=== PATIENT | male | born 1955 | race Caucasian/White ===

== ENCOUNTER 2019-05-06 10:51 | Inpatient (IN) | payer OTHER ==
[~2019-05-06] VITALS: Ht 175.3 cm; Wt 74.0 kg
[2019-05-06] VITALS (22 sets, daily range): BP systolic 117–148; BP diastolic 61–97
--- NOTE | ~2019-05-06 | HC ---
[facility] [place] [address] CONSULTATION Name: CAMPOSALEXIA Room #: 208-P [facility] IN M.R.#: [id number] Admission: 05/06/19 Attend Phys: Gasper Franco MD Discharge: Date of : 59 Report #: [id number] THIS REPORT FOR: //name// CC: Gasper Gruber DATE OF SERVICE: 05/06/2019 INFECTIOUS DISEASE CONSULTATION ATTENDING PHYSICIAN: Dr. Franco CONSULTATION REQUESTED BY: Dr. Florez. REASON FOR CONSULTATION: Leukocytosis. HISTORY OF PRESENT ILLNESS: The patient is a 64-year-old white man admitted with chest pain, diagnosed to have myocardial infarction with high troponins. He is found to have white blood cell count of 40,000. Needs cardiac catheterization. ID opinion requested for clearance. The patient apparently recently on treatment for bladder type symptoms, painful urination, had been on Keflex 500 mg 4 times daily, was seen by urologist and prescribed some medication for his bladder. PAST MEDICAL HISTORY: Coronary artery stenting in 2000 and 2002, hypertension, dyslipidemia, gastroesophageal reflux, recent history of UTI, prostatitis. DRUG ALLERGIES: None listed. MEDICATIONS: The patient on tamsulosin, metoprolol, pantoprazole, vancomycin 1 gram IV every 12 hours, Zosyn 3.375 grams IV every 8 hours, atorvastatin, hydrocodone p.r.n., morphine sulfate p.r.n., polyethylene glycol, nitroglycerin p.r.n., ondansetron p.r.n. SOCIAL HISTORY: See H and P. FAMILY HISTORY: See H and P. REVIEW OF SYSTEMS: As above. PHYSICAL EXAMINATION: GENERAL: Well-developed man, not toxic looking, afebrile since admission. VITAL SIGNS: Temperature 98, pulse 82, respirations 23, BP 127/73, saturation normal on room air. HEENMT: Within range. NECK: Supple. [facility] [address] [place] [address] CONSULTATION Name: ALEXIA GASCA Room #: 208-P [facility] IN [facility]#: [id number] Admission: 05/06/19 Attend Phys: Gasper Franco MD Discharge: Date of : 59 Report #: [id number] LUNGS: Clear. HEART: S1, S2. No gallop or murmur. ABDOMEN: Soft, no masses or megaly. GENITALIA: Normal. RECTAL: Deferred. EXTREMITIES: No clubbing, cyanosis. NEUROLOGIC: Grossly within normal limits. LABORATORY DATA: Revealed the following abnormals, creatinine 1.4 mg/dL. SGOT 333 down to 178 U/L, albumin 2.6 g/dL. Troponin elevated at 88.31 on admission. NT-proBNP 33,801. CRP 67.4. Protime 10.2 seconds, INR 1. WBC 40,200, hemoglobin 12.2, platelets 358,000 with white blood cell count showing 89% segmented neutrophils on admission. Repeat CBC today revealed a white blood cell count has come down to 30,500. The urinalysis is rather abnormal compatible with urinary tract infection. Blood and urine cultures were obtained, those are pending at the time of this dictation. Abdominal ultrasound essentially negative besides minimal cholelithiasis versus biliary sludge. No liver abnormalities detected. 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 ASSESSMENT: 1. Possible acute myocardial infarction. 2. History of coronary artery stenting. 3. Cigarette smoking. 4. Urinary tract infection and evidence of intra-bladder mass, possible transitional cell carcinoma. SUGGESTIONS: Continue vancomycin and Zosyn. Proceed with cardiac catheterization, obviously needs Urology consultation for care of the intra-bladder tumor. Dr. Pérez, thank you for requesting my suggestions. By: 0620 1537 Tom Urena MD /nt
[2019-05-06 11:29] LABS: URINE BILIRUBIN NEGATIVE (Negative); URINE BLOOD 3+ (Negative); URINE COLOR YELLOW; URINE GLUCOSE-RANDOM* NEGATIVE (Negative); URINE KETONES NEGATIVE (Negative); URINE LEUKOCYTES-REFLEX 2+ (Negative); URINE NITRITE-REFLEX NEGATIVE (Negative); URINE PROTEIN (DIPSTICK) 1+ (Negative); URINE UROBILINOGEN 0.2 E.U./dl (0.2-1.0)
[2019-05-06 11:30] LABS: URINE CLARITY HAZY
[2019-05-06 11:30] LABS: HEMATOCRIT 37.2 % (42.0-52.0); HEMOGLOBIN 12.2 gm/dL (14.0-18.0); MCH 30.4 pg (26.0-34.0); MCHC 32.7 g/dL (28.0-37.0); MCV 92.9 fL (80.0-100.0); PLATELET COUNT 358 thou/uL (150-400); RBC 4.01 mil/uL (4.50-6.00); RDW 13.7 % (10.5-14.5)
[2019-05-06 11:34] LABS: WBC 40.2 thou/uL (4.0-11.0)
[2019-05-06 11:41] LABS: CALCIUM 10.5 mg/dL (8.5-10.1); CREATININE 1.4 mg/dL (0.7-1.3); POTASSIUM 4.3 mmol/L (3.5-5.1)
[2019-05-06 11:43] LABS: CASTS None Seen /LPF (None Seen); SQUAMOUS 0-3 Few /LPF (0-3); URINE WBC-REFLEX >25 Many /HPF (0-5)
[2019-05-06 11:44] LABS: CRYSTALS None Seen /LPF (None Seen); URINE RBC >20 Many /HPF (0-2); WBC CLUMPS Packed (None Seen)
[2019-05-06 11:52] LABS: ALBUMIN 3.3 g/dL (3.4-5.0); TOTAL BILIRUBIN 0.4 mg/dL (<0.1-1.0); TOTAL PROTEIN 8.1 g/dL (6.4-8.2)
[2019-05-06 12:13] LABS: ABSOLUTE NEUTROPHILS 35.8 thou/uL (1.4-8.2)
[2019-05-06 12:20] LABS: TROPONIN-I 88.31 ng/mL (<0.06)
[2019-05-06 12:25] LABS: ANISOCYTOSIS SLIGHT
--- NOTE | 2019-05-06 12:27 | EKG ---
[place] [address] [facility] [place] [address] ELECTROCARDIOGRAM REPORT Name: ALEXIA GASCA [id number] Admission: 05/06/19 Attend Phys: Discharge: Date of : 59 Report #: [id number] THIS REPORT FOR: //name// [facility] ED Test Date: 2019-05-06 Test Time: 11:17:57 Pat Name: ALEXIA GASCA Department: Room: Gender: M Education Counselor: JOSE : 1955 Requested By: Carleen Long Order Number: [id number] MD: Earl Florez Measurements Intervals [place] Rate: 88 P: 99 RI: 157 QRS: 68 QRSD: 87 T: 226 QT: 339 QTc: 410 Interpretive Statements Sinus rhythm Atrial premature complexes Poor R-wave progression Nonspecific ST segment abnormalities Compared to ECG 06/25/2004 09:05:39 Atrial premature complex(es) now present Electronically Signed On 05-06-2019 12:26:55 BARIATRIC PHYSICIAN by Earl Florez [email or web address] <ELECTRONICALLY SIGNED> By: Earl Florez MD 05/06/19 1226 1117 1117 MD AWA Martinez
[2019-05-06] MEDS ORDERED: LISINOPRIL10 MG PO (12:51)
[2019-05-06] MEDS ORDERED: KEFLEX500 M1 PO (12:51)
[2019-05-06] MEDS ORDERED: DILTIAZEM 24HR240 M1 PO (12:52)
[2019-05-06] MEDS ORDERED: ALPRAZOLAM2 MG PO (12:53)
[2019-05-06] MEDS ORDERED: TAMSULOSIN HCL0.4 MG PO (12:53)
[2019-05-06] MEDS ORDERED: NORCO 10-325 T1 EACH PO (12:53)
[2019-05-06] MEDS ORDERED: FINASTERIDE5 MG PO (12:54)
[2019-05-06] MEDS ORDERED: ASA81BEC PO (12:54)
[2019-05-06 13:19] LABS: PROTIME 10.2 Seconds (9.3-11.4)
--- NOTE | 2019-05-06 14:00 | NUR ---
64 YO MALE WITH NSEMI AND UTI ADMITTED TO ICU ROOM 245 AT 1352 PER CART FROM ED. ATTACHED TO MONITORS AND ASSESSED. DENIES CHEST PAIN.
--- NOTE | 2019-05-06 19:20 | NUR ---
PATIENT PROGRESSING TOWARDS OUTCOME GOALS EVIDENT BY DENIES CHEST PAIN. VSS. HEPARIN DRIP CONTINUES AND TITRATED PER PROTOCOL. DR HANNON FROM ID IN TO EXAMINE PATIENT AND CLEARED FOR CARDIAC CATH, DR LOMAX INFORMED. RENAL AND ABD ULTRASOUND DONE AT BEDSIDE AT 1530 TODAY. PATIENT C/O CHRONIC HIP AND LOWER BACK PAIN, DR GUZMAN INFORMED FOR PAIN MANAGEMENT PROTOCOL. SON AT BEDSIDE EARLIER, UPDATED TO POC WITH PATIENT QUESTIONS ANSWERED AND REASSURANCE GIVEN.
[2019-05-07] VITALS (23 sets, daily range): BP systolic 103–142; BP diastolic 58–88
[2019-05-07 02:12] LABS: HEMATOCRIT 34.9 % (42.0-52.0); HEMOGLOBIN 11.2 gm/dL (14.0-18.0); MCH 30.4 pg (26.0-34.0); MCHC 32.1 g/dL (28.0-37.0); MCV 94.5 fL (80.0-100.0); PLATELET COUNT 309 thou/uL (150-400); RBC 3.69 mil/uL (4.50-6.00); RDW 13.9 % (10.5-14.5); WBC 30.5 thou/uL (4.0-11.0)
[2019-05-07 02:22] LABS: ALBUMIN 2.6 g/dL (3.4-5.0); CALCIUM 9.4 mg/dL (8.5-10.1); CREATININE 1.4 mg/dL (0.7-1.3); POTASSIUM 4.2 mmol/L (3.5-5.1); TOTAL BILIRUBIN 0.4 mg/dL (<0.1-1.0); TOTAL PROTEIN 6.6 g/dL (6.4-8.2)
[2019-05-07 03:26] LABS: ABSOLUTE NEUTROPHILS 27.5 thou/uL (1.4-8.2); LARGE PLATELETS OCCASIONAL
--- NOTE | 2019-05-07 04:36 | NUR ---
ASSESSMENT DOCUMENTED.PT BEEN RESTING IN NO ACUTE DISTRESS.VSS.NO C/O CHEST PAIN OR ANY DISCOMFORT.ON RA W/O RESP DISTRESS.TROPONIN TRENDING DOWN.NPO AFTER MIDNOC FOR POSSIBLE SHELBY TODAY.ON HEPARIN DRIP PER PROTOCOL.ON ABT THERAPY,INFUSED,TOLERATED.VOIDING VIA URINAL,CINDY IN COLOR.DENIES ANY NEEDS AT THIS TIME.
[2019-05-07 06:06] LABS: HEPATITIS B SURFACE AG Negative (Negative); HEPATITIS C VIRUS AB <0.1 (0.0-0.9)
[2019-05-07 06:06] LABS: HAV IgM AB (ANTI-HAV IgM) Negative (Negative); HEPATITIS B SURFACE AG Negative (Negative); HEPATITIS C VIRUS AB <0.1 (0.0-0.9)
--- NOTE | 2019-05-07 08:31 | HC ---
[facility] [place] [address] CONSULTATION Name: ALEXIA GASCA Room #: 240-[facility] IN ..#: [id number] Admission: 05/06/19 Attend Phys: Gasper Franco MD Discharge: Date of : 59 Report #: [id number] THIS REPORT FOR: //name// CC: Gasper Gruber DATE OF SERVICE: 05/06/2019 INDICATION: Chest pain. HISTORY OF PRESENT ILLNESS: This is a 64-year-old gentleman with a history of CAD with remote stenting, hypertension, hypercholesterolemia, noncompliance with medications and chronic tobacco use. For the past month or so, he has been dealing with prostatitis on different antibiotics. Recently, he reported epigastric discomfort, especially after meals. He took Nexium with partial improvement. He did not have any discomfort with exertion. Last evening, he had more intense pain in the epigastric/substernal area. It was nonradiating. He did not have any shortness of breath. The episode was persistent this time, lasting at least 6 hours in duration. He presents to the ER for an evaluation. He had angioplasty performed in 2000 and 2002. He offers no complaints of fever, nausea or diarrhea. First troponin is greater than 80. ECG reveals sinus rhythm with probable Q-waves in the septal leads with no ST segment elevation. PAST MEDICAL HISTORY: Stent in 2000 and 2002. Has not followed up with Cardiology. He has a history of hypertension, hypercholesterolemia, but not taking a statin, GERD and prostatitis. ALLERGIES: None. MEDICATIONS: At home include lisinopril 10, diltiazem, aspirin, tamsulosin, finasteride and antibiotics. ALLERGIES: None. SOCIAL HISTORY: Positive tobacco use, at least 1 pack per day. FAMILY HISTORY: Negative for premature CAD. REVIEW OF SYSTEMS: A full 10-point review of systems performed. Only the pertinent positives and negatives are described in the HPI. PHYSICAL EXAMINATION: VITAL SIGNS: Blood pressure is 120/70, heart rate is 70 beats per minute. GENERAL APPEARANCE: This is a well-developed, well-nourished male in no acute distress. [facility] [address] [place] [address] CONSULTATION Name: ALEXIA GASCA Room #: [facility] IN .R.#: [id number] Admission: 05/06/19 Attend Phys: Gasper Franco MD Discharge: Date of : 59 Report #: [id number] HEENT: Normocephalic, atraumatic. Oral mucosa moist. NECK: Supple. LUNGS: Clear to auscultation. CARDIAC: Regular rate and rhythm, S1, S2 positive. ABDOMEN: Soft, nontender. EXTREMITIES: No cyanosis, no edema. NEUROLOGIC: Alert and oriented x 3. LABORATORY VALUES: White count is 40.2, hemoglobin is 12.2, 89% neutrophils. Sodium 138, creatinine is 1.4, AST is 333, ALT 71. ECG reveals sinus rhythm, Q-waves in V2-V3, nonspecific ST segment abnormality. ASSESSMENT AND PLAN: 1. Non-ST elevation myocardial infarction, had more than 6 hours of pain last night, pain free at present. Does not have any sequela from his heart attack. We will check serial enzymes. Continue with aspirin and start heparin as per protocol. I discussed with him the pros and cons of a cardiac catheterization. He voices consent and we will proceed. 2. Gastroesophageal reflux disease, start Protonix. Will need a GI evaluation for his elevated LFTs. 3. Prostatitis, elevated white count. ID to follow. 4. Hypertension, we will start a beta uriel. 5. Hypercholesterolemia, start statin therapy. 6. Tobacco use, complete smoking cessation is advised. <ELECTRONICALLY SIGNED> By: Earl Florez MD 05/07/19 0831 1306 0147 Earl Florez MD /nt
--- NOTE | 2019-05-07 10:32 | EKG ---
[address] [place] [place] [address] ELECTROCARDIOGRAM REPORT Name: ALEXIA GASCA Og Room #: 240-P ADM IN M.R.#: [id number] Admission: 05/06/19 Attend Phys: Gasper Franco MD Discharge: Date of : 59 Report #: [id number] THIS REPORT FOR: //name// [facility] Test Date: 2019-05-07 Test Time: 09:09:31 Pat Name: ALEXIA GASCA Department: Room: 240 P Gender: M Technical Aid: Anel BURNETT : 1955 Requested By: Earl Florez Order Number: [id number] MD: Earl Florez Measurements Intervals [place] Rate: 76 P: 84 [place]: 147 QRS: 74 QRSD: 91 T: 201 QT: 418 QTc: 471 Interpretive Statements Sinus rhythm Anteroseptal infarct, age indeterminate Lateral leads are also involved Compared to ECG 05/06/2019 11:17:57 Atrial premature complex(es) no longer present Poor R-wave progression no longer present Electronically Signed On 05-07-2019 10:31:47 LAW RESEARCHER by Earl Florez [email or web address] <ELECTRONICALLY SIGNED> By: Earl Florez MD 05/07/19 1031 0909 0909 Earl Florez MD /EPI
--- NOTE | 2019-05-07 13:18 | NUR ---
PT WENT TO TELEPHONE INTERCEPTOR OPERATOR THIS AM. STENT TO LAD. HEPARIN GTT DISCONTINUED IN ROUTE TO TELEPHONE INTERCEPTOR OPERATOR. RIGHT GROIN SITE C/D/I. POST PROCEDURE VITALS COMPLETE. PT TO TRANSFER TO CCU AFTER BEDREST.
--- NOTE | 2019-05-07 13:25 | NUR ---
PT INSTRUCTED ON THE NEED TO LAY FLAT FOR 4 HOURS POST SHEATH REMOVAL. PATIENT NON-COMPLAINT WITH THESE INSTRUCTIONS. CONTINUE TO EXPRESS THE IMPORTANCE OF THIS TO PATIENT.
[2019-05-08 04:51] VITALS: BP 128/81
[2019-05-08 05:08] LABS: HEMATOCRIT 35.4 % (42.0-52.0); HEMOGLOBIN 11.5 gm/dL (14.0-18.0); MCH 30.8 pg (26.0-34.0); MCHC 32.4 g/dL (28.0-37.0); RBC 3.73 mil/uL (4.50-6.00); RDW 13.5 % (10.5-14.5); WBC 32.5 thou/uL (4.0-11.0)
[2019-05-08 05:32] LABS: ALBUMIN 2.7 g/dL (3.4-5.0); CALCIUM 9.9 mg/dL (8.5-10.1); CREATININE 1.6 mg/dL (0.7-1.3); POTASSIUM 4.4 mmol/L (3.5-5.1); TOTAL BILIRUBIN 0.6 mg/dL (<0.1-1.0); TOTAL PROTEIN 6.7 g/dL (6.4-8.2)
[2019-05-08 05:38] LABS: TROPONIN-I 27.15 ng/mL (<0.06)
--- NOTE | 2019-05-08 06:19 | NUR ---
ASSUMED PT CARE AROUND 1900. PT VSS WITH PARTIAL PAIN RELIEF OF LOWER BACK. PT GROIN SITE C/D/I WITH NO HEMATOMA. PT UP AD JOSÉ MIGUEL AND STEADY WITH CANE. PT IS PROGRESSING TOWARDS POC. WILL CONTINUE TO MONITOR.
--- NOTE | 2019-05-08 07:55 | EKG ---
[address] [employer] [facility] ([facility] [place] [address] ELECTROCARDIOGRAM REPORT Name: CAMPOSALEXIA Room #: 208-P ADM IN M.R.#: [id number] Admission: 05/06/19 Attend Phys: Gasper Franco MD Discharge: Date of : 59 Report #: [id number] THIS REPORT FOR: //name// [facility] Test Date: 2019-05-07 Test Time: 17:03:32 Pat Name: ALEXIA GASCA Department: Room: 208 Gender: M Votator Machine Operator: Kayla MCLAUGHLIN : 1955 Requested By: Earl Florez Order Number: [id number] MD: Amaury Rivera Measurements Intervals [place] Rate: 62 P: 42 [place]: 151 QRS: 58 QRSD: 94 T: 205 QT: 481 QTc: 489 Interpretive Statements Sinus rhythm Anterior infarct, age indeterminate Abnormal T, probable ischemia, Compared to ECG 05/07/2019 09:09:31 no significant change was found Electronically Signed On 05-08-2019 7:54:40 ROVING TECHNICIAN by Amaury Rivera [email or web address] <ELECTRONICALLY SIGNED> By: Amaury Rivera MD, [facility] 05/08/19 0754 02 02 Amaury Rivera MD, [facility] /EPI
--- NOTE | 2019-05-08 07:58 | EKG ---
[address] [place] [address] ELECTROCARDIOGRAM REPORT Name: ALEXIA GASCA Room #: 208-P ADM IN M.R.#: [id number] Admission: 05/06/19 Attend Phys: Gasper Franco MD Discharge: Date of : 59 Report #: [id number] THIS REPORT FOR: //name// [facility] Test Date: 2019-05-08 Test Time: 06:55:02 Pat Name: ALEXIA GASCA Department: Room: 208 P Gender: M Clinical Laboratory Technician: Angel Luis PADGETT : 1955 Requested By: Earl Florez Order Number: [id number] MD: Amaury Rivera Measurements Intervals [place] Rate: 70 P: 77 [place]: 145 QRS: 70 QRSD: 92 T: 153 QT: 518 QTc: 560 Interpretive Statements Sinus rhythm Occasional premature ventricular complexes Anteroseptal infarct, age indeterminate T-wave abnormality, consider ischemia Prolonged QT interval Compared to ECG 05/07/2019 09:09:31 Premature ventricular complexes are now present Electronically Signed On 05-08-2019 7:58:10 MACHINE SLAT BASKET MAKER by Amaury Rivera [email or web address] <ELECTRONICALLY SIGNED> By: Amaury Rivera MD, [facility] 05/08/19 0758 0655 0655 Amaury Rivera MD, [facility] /EPI
[2019-05-08 07:59] VITALS: BP 126/80
[2019-05-08] MEDS ORDERED: METOPROLOL SUCC50 MG PO (08:48)
[2019-05-08] MEDS ORDERED: LIPITOR40 MG PO (08:48)
[2019-05-08] MEDS ORDERED: EFFIENT10 MG PO (08:48)
--- NOTE | 2019-05-08 09:31 | CATHLAB ---
[facility] [address] [place] [address] INVASIVE PROCEDURE REPORT Name: ALEXIA GASCA Room #: 208-P ADM IN ..#: [id number] Admission: 05/06/19 Attend Phys: Kayla Correa Discharge: Date of : 59 Report #: [id number] THIS REPORT FOR: //name// APPROVED REPORT Study performed: 05/07/2019 09:53:39 Patient Details Patient Status: In-Patient Room #: 240 The patient is a 64 year-old male Event Personnel Earl Florez Fine Chemicals Operator, Della Palacios RTR, SENIOR SOFTWARE SYSTEMS ENGINEER Monitor, Demetri Whyte RN, Rodney Lagos RT(R)(CV) Scrub Procedures Performed Art Access - R femoral artery* Left Heart Cath w/or w/o Coronaries [id number] [facility] [address] w/wo Plasty Single LAD 708379 Hemostasis w/ Mynx 42575 Initial Mod Sed Same Phys/QHP Gr5y 997567 75026 Mod Sed Same Phys/QHP Ea 500082 18448 Mod Sed Same Phys/QHP Ea 898905 Indication Non-STEMI , Dyspnea, Chest pain Risk Factors Hypercholesterolemia, Coronary Artery DiseaseHypertension, Tobacco History () Previous Procedures/Diagnoses Previous PCI Procedure Narrative The Right Groin^ was infiltrated with 1% Lidocaine subcutaneous anesthesia. A PINNACLE 6FR Sheath #[id number] sheath was inserted into the RFA^. Coronary angiography was performed using coronary diagnostic catheters. The right coronary system was accessed and visualized with a JR4 catheter. The left coronary system was accessed and visualized with a JL4 catheter. The left ventricle was accessed and visualized with a JR4 catheter. Left ventricular/Aortic Valve gradient assessed via catheter pullback. Pre-demployment femoral angiogram was performed . Closure device was deployed with a 6 Fr MYNXGRIP 6/7F #[id number]. The patient tolerated the procedure well and there were no complications associated with the procedure. There was no hematoma. [facility] [address] [place] [address] INVASIVE PROCEDURE REPORT Name: ALEXIA GASCA Room #: 208-[facility] IN [facility]#: [id number] Admission: 05/06/19 Attend Phys: Kayla Correa Discharge: Date of : 59 Report #: [id number] Intraoperative Conscious Sedation Sedation start time: 10:33 Case end Time: 11:33 Versed 4 mg Fluoro Time: 14.06 minutes Dose: DAP 95613.80 cGycm2 1339 mGy Contrast Type and Amount: Visipaque 180 ml Coronary Angiography The patient's coronary anatomy is right dominant. Diagnostic Cath Left Main This is a large caliber vessel, with a mild to moderate stenosis in the mid segment, 30-40%. LAD This is a moderate size caliber vessel, traversing the anterior wall and wrapping around the apex. There is a stent in the proximal segment with severe restenosis, 95%. Diagonal 1 This is a small to moderate size caliber vessel with moderate diffuse disease. Circumflex Supplies one moderate size OM vessel. OM1 This is a moderate size vessel, patent as it travels down the lateral wall. Right Coronary There is a total occlusion in the proximal segment. The distal branches are filled via collateral circulation from the left coronary artery. Left Ventriculography Left Ventriculography was not performed. An LVEDP was measured and there is no gradient across the outflow tract. Hemodynamics The aortic pressure is 119/66 mmHg with a mean of 86 mmHg. The left ventricular pressure is 119/13 mmHg with a mean of mmHg. The left ventricular end diastolic pressure is 31 mmHg. PCI Technique Lesion Percutaneous coronary intervention was performed on the proximal left anterior descending artery segment. The lesion stenosis prior to intervention was 95% with CIERRA 3 flow. A VISTA 6FR XB 3.5 #668770 Guide Catheter was used to engage the ostium. A Luge Wire .014 x 182CM #451125 Interventional Guidewire was used to cross the lesion. BALLOON DILATION [facility] [address] [place] [address] INVASIVE PROCEDURE REPORT Name: ALEXIA GASCA Room #: 208-P [facility] IN .R.#: [id number] Admission: 05/06/19 Attend Phys: Kayla Correa Discharge: Date of : 59 Report #: [id number] A Balloon catheter Euphora RX 3.0 x 15 #[id number] was inserted and inflated up to 14.00atm for 17seconds. Additional Inflation: 14.00atm for 9seconds. Additional Inflation: 14.00atm for 13seconds. A balloon catheter AngioSculpt 3.0 x 10 was inserted and inflated up to 8 sal for 40 seconds. Additional inflation: 14 sal for 72 seconds. STENT DEPLOYMENT A drug-eluting stent RESOLUTE SHANNON RX 3.0 X 18 #[id number] was inserted and inflated up to 12.00atm for 29seconds. POST STENT DEPLOYMENT BALLOON DILATION A Balloon catheter TREK NC RX 3.25 X 15 #[id number] was inserted and inflated up to 18.00atm for 40seconds. Final angiography reveals 5 % stenosis with CIERRA 3 flow. Conclusion 1. Successful PCI performed involving atherectomy(using an Angiosculpt balloon) and placement of a drug-eluting stent into the severe proximal LAD restenosis. 2. Occluded RCA, the distal branches are filled via collateral circulation from the left coronary artery. 3. The LCx/OM artery is patent. 4. Recommend dual antiplatelet therapy and aggressive risk factor management. <ELECTRONICALLY SIGNED> By: Earl Florez MD 05/08/19929 9 9 Earl Florez MD /INF
[2019-05-08 11:51] VITALS: BP 113/76
[2019-05-08] MEDS ORDERED: PROTONIX40 M1 PO (16:08)
[2019-05-08 18:15] LABS: HEMATOCRIT 34.3 % (42.0-52.0); MCH 30.6 pg (26.0-34.0); MCHC 32.2 g/dL (28.0-37.0); MCV 95.3 fL (80.0-100.0); PLATELET COUNT 298 thou/uL (150-400); RDW 14.2 % (10.5-14.5); WBC 33.9 thou/uL (4.0-11.0)
[2019-05-08 18:55] LABS: ABSOLUTE NEUTROPHILS 30.2 thou/uL (1.4-8.2); PLATELET ESTIMATE NORMAL
[2019-05-08 19:26] VITALS: BP 133/68
[2019-05-09 04:46] LABS: ALBUMIN 2.5 g/dL (3.4-5.0); CALCIUM 9.1 mg/dL (8.5-10.1); CREATININE 1.7 mg/dL (0.7-1.3); POTASSIUM 3.9 mmol/L (3.5-5.1); TOTAL BILIRUBIN 0.5 mg/dL (<0.1-1.0); TOTAL PROTEIN 6.6 g/dL (6.4-8.2)
[2019-05-09 04:53] LABS: HEMATOCRIT 32.6 % (42.0-52.0); HEMOGLOBIN 10.6 gm/dL (14.0-18.0); MCH 31.1 pg (26.0-34.0); MCHC 32.5 g/dL (28.0-37.0); MCV 95.7 fL (80.0-100.0); RBC 3.4 mil/uL (4.50-6.00); RDW 13.8 % (10.5-14.5); WBC 28.2 thou/uL (4.0-11.0)
[2019-05-09 05:00] VITALS: BP 144/87
[2019-05-09 05:26] LABS: URINE BILIRUBIN 1+ (Negative); URINE BLOOD 3+ (Negative); URINE CLARITY TURBID; URINE COLOR RED; URINE GLUCOSE-RANDOM* NEGATIVE (Negative); URINE KETONES NEGATIVE (Negative); URINE PROTEIN (DIPSTICK) 3+ (Negative)
[2019-05-09 05:32] LABS: URINE LEUKOCYTES-REFLEX 3+ (Negative); URINE NITRITE-REFLEX POSITIVE (Negative)
--- NOTE | 2019-05-09 05:56 | NUR ---
ASSESSMENT DOCUMENTED.PT BEEN RESTING IN NO ACUTE DISTRESS.A/OX4.VSS.AFEBRILE.NSR ON MONITOR.NS INFUSING PER ORDERS.ON ABT THERAPY TOLERATING.PAIN MEDS PER ORDER FOR HIPS AND BACK PAINS GIVEN W/TOLERATED RELIEF.UP WITH A CANE IN HIS ROOM.AMBULATES IN THE ROOM W/CANE.VOIDING VIA URINAL.STILL BLOODY URINE WITH SOME CLOTS AT TIMES.UA SENT TO LABS PER ORDERS.PT DENIES ANY CONCERNS AT THIS TIME.WILL CONT TO MONITOR PER POC.
[2019-05-09 06:01] LABS: SQUAMOUS 0-3 Few /LPF (0-3)
[2019-05-09 06:02] LABS: BACTERIA-REFLEX 1-9 Few /HPF (None Seen); CASTS None Seen /LPF (None Seen); CRYSTALS None Seen /LPF (None Seen); MUCUS 0-3 Light strn/LPF (None Seen); URINE RBC >20 Many /HPF (0-2); URINE WBC-REFLEX >25 Many /HPF (0-5)
[2019-05-09 08:04] VITALS: BP 152/98
--- NOTE | 2019-05-09 10:39 | NUR ---
ASSUMED CARE AT 0700, SHIFT ASSESSMENT DONE, MEDS GIVEN, VSS. REPORTED BACK PAIN, DOES NOT WANT ANY PAIN MEDS NOW. ROOM AIR, U PAD JOSÉ MIGUEL, NSR ON TELE. NEEDS A UROLOGY CONSULT, AWAITING TO BE TRANSFERRED TO [facility] TO BE SEEN BY DR SIDDIQI. WILL CONTINUE TO ASSESS AND ASSIST WITH ADLs NEEDED.
[2019-05-09 11:05] VITALS: BP 131/68
--- NOTE | 2019-05-09 15:15 | NUR ---
patient admits with nstemi. patient independent with adls and ambulates in room. His son at bedside. patient with prostatis, increase in WBC. Patient wanting last evening to dc home and f/u with his urology on outpatient basis but not medically stable. Patient today with need to transfer to [facility] for urology need. Sp with [facility] transfer team Nica. rec clinical information faxed awaiting evaluation if accepted. Updated patient.
--- NOTE | 2019-05-09 16:39 | NUR ---
patient accepted to [facility]. They report no accepting phys at this time. once bed avail they will call unit to alert and let unit know accepting phys.
[2019-05-09 17:05] VITALS: BP 137/85
[2019-05-09 19:30] VITALS: BP 143/77
[2019-05-10 04:01] VITALS: BP 143/88
--- NOTE | 2019-05-10 05:11 | NUR ---
ASSUMED PT CARE AT 1900. PT A&OX4, ASSESSMENTS CHARTED, TOOK MEDICATIONS WITHOUT DIFFICULTY, COMPLAINED OF LOWER BACK AND HIP PAIN, MEDICATED NEEDED WITH PARTIAL RELIEF, RESTED WELL THROUGHOUT THE NIGHT, WAITING FOR TRANSFER TO [facility] FOR FURTHER UROLOGY EVALUATION , WILL CONTINUE TO MONITOR
[2019-05-10 07:34] VITALS: BP 153/88
--- NOTE | 2019-05-10 07:57 | NUR ---
ASSUMED CARE OF PT APPROX 0715, PAIN IN LOWER BACK >15 YEARS, FLANK PAIN RECENT. A&0X4, USES CANE LAST 10 YEARS, WALKS STEADY, SEE SEPARATE INTERVENTIONS FOR ASSESSMENTS, PER REPORT PT WILL TRANFER TO [facility] WHEN A BED AND PHYSICIAN ARE AVAILABLE. PAPERWORK WITH CHART. ENCOURAGED PT TO USE CALL LIGHT FOR ANY NEEDS
[2019-05-10 08:33] LABS: HEMATOCRIT 33.5 % (42.0-52.0); HEMOGLOBIN 10.6 gm/dL (14.0-18.0); MCH 30.2 pg (26.0-34.0); MCHC 31.8 g/dL (28.0-37.0); MCV 95.1 fL (80.0-100.0); RBC 3.52 mil/uL (4.50-6.00); WBC 34.9 thou/uL (4.0-11.0)
[2019-05-10 08:35] LABS: CALCIUM 9.7 mg/dL (8.5-10.1); CREATININE 1.6 mg/dL (0.7-1.3); POTASSIUM 3.9 mmol/L (3.5-5.1)
--- NOTE | 2019-05-10 09:15 | NUR ---
SPOKE WITH DONAV[facility] WHO REPORTS THEY ARE AT [facility] TODAY BUT HOPEFUL FOR BED AVAIL LATER THIS AFTERNOON.
[2019-05-10 12:48] VITALS: BP 146/86
[2019-05-10 16:18] VITALS: BP 151/89
--- NOTE | 2019-05-10 16:45 | NUR ---
Called [facility] throughout the day no beds avail. patient agreeable to inquire with another hospital [facility] if avail. Initiated referral to [facility]. Sp with patient who reports he sp with Dr Foreman who reports inquire if can dc with home iv antibiotics. He reports Dr Foreman stated [facility] will do nothing while on a blood thinner. Notfied Dr ritchie and Dr Hernandez.
--- NOTE | 2019-05-10 16:56 | NUR ---
phys reports cancel transfer. called [facility] and cancelled transfer per phys request.
--- NOTE | 2019-05-10 17:54 | NUR ---
ASSUMED CARE AT 1300, SHIFT ASSESSMENT DONE, MEDS GIVEN, VSS. DENIES ANY PAIN, NAUSEA, VOMITING. UP AD JOSÉ MIGUEL, NSR ON TELE, VSS. PATIENT TALKED TO DR SIDDIQI AND WAS NOTIFIED THAT HE WILL NOT BE ABLE TO DO THE STENT NOW HE IS ON BLOOD THINNER. DR WHITMAN LATER ON NOTIFIED THAT STENITING WILL BE DONE ON NEXT WEDNESDAY. WILL CONTINUE TO ASSESS AND ASSIST WITH ADLs NEEDED.
[2019-05-10 19:32] VITALS: BP 128/71
[2019-05-10] MEDS ORDERED: CEFDINIR300 MG PO (19:48)
--- NOTE | 2019-05-10 20:10 | NUR ---
ASSUMED PT CARE AT SHIFT CHANGE. WAS INFORMED BY DAY NURSE THAT PATIENT WAS WILLING TO LEAVE AGAINST MEDICAL ADVICE. DOCTOR FRANCHESKA SPOKE WITH PATIENT, AND DOCTOR ANTONETTE WAS MADE AWARE. EDUCATION PROVIDED, PT WAS STILL ADAMANT ON LEAVING. AMA FORM SIGNED. PT LEFT UNIT AT ABOUT 2000 WITH FAMILY MEMBER.
== END 2019-05-10 20:12 | disposition left against medical advice (07) | DRG 246 ==
LOC: ER 10:51 → 2N 12:45 → EROBS 12:45 → ICU 13:38 → 2N 05-07 16:37
PROVIDERS: Hospitalist; Internal Medicine Cardiovascular Disease; Internal Medicine Infectious Disease; Nurse Practitioner Family; Specialist; ADMIT Hospitalist
PROC: B41FYZZ Fluoroscopy of Right Lower Extremity Arteries using Other Contrast (ICD-10-PCS; principal; 2019-05-07)
PROC: 4A023N7 Measurement of Cardiac Sampling and Pressure, Left Heart, Percutaneous Approach (ICD-10-PCS; principal; 2019-05-07)
PROC: 02C03ZZ Extirpation of Matter from Coronary Artery, One Artery, Percutaneous Approach (ICD-10-PCS; principal; 2019-05-07)
PROC: B211YZZ Fluoroscopy of Multiple Coronary Arteries using Other Contrast (ICD-10-PCS; principal; 2019-05-07)
PROC: 027034Z Dilation of Coronary Artery, One Artery with Drug-eluting Intraluminal Device, Percutaneous Approach (ICD-10-PCS; principal; 2019-05-07)
DX: T82.855A Stenosis of coronary artery stent, initial encounter (principal); I21.4 Non-ST elevation (NSTEMI) myocardial infarction; E43 Unspecified severe protein-calorie malnutrition; N41.0 Acute prostatitis; N39.0 Urinary tract infection, site not specified; N17.9 Acute kidney failure, unspecified; N41.2 Abscess of prostate; I10 Essential (primary) hypertension; E78.5 Hyperlipidemia, unspecified; K21.9 Gastro-esophageal reflux disease without esophagitis; D72.829 Elevated white blood cell count, unspecified; E78.00 Pure hypercholesterolemia, unspecified; F17.210 Nicotine dependence, cigarettes, uncomplicated; I25.10 Atherosclerotic heart disease of native coronary artery without angina pectoris; R74.0 Nonspecific elevation of levels of transaminase and lactic acid dehydrogenase [LDH]; E83.52 Hypercalcemia; N32.9 Bladder disorder, unspecified; N13.9 Obstructive and reflux uropathy, unspecified; K80.20 Calculus of gallbladder without cholecystitis without obstruction; Y83.8 Other surgical procedures as the cause of abnormal reaction of the patient, or of later complication, without mention of misadventure at the time of the procedure; Y92.89 Other specified places as the place of occurrence of the external cause; Z95.5 Presence of coronary angioplasty implant and graft; Z71.6 Tobacco abuse counseling; Z80.8 Family history of malignant neoplasm of other organs or systems; Z83.3 Family history of diabetes mellitus; Z79.82 Long term (current) use of aspirin; Z79.899 Other long term (current) drug therapy; Z68.24 Body mass index [BMI] 24.0-24.9, adult
CPT/HCPCS: 10078; 10081

== ENCOUNTER → 2019-06-07 | Outpatient (CLI) | payer OTHER ==
[~2019-06-07] MED LIST: ALPRAZOLAM2 MG PO; ASA81BEC PO; CEFDINIR300 MG PO; DILTIAZEM 24HR240 M1 PO; EFFIENT10 MG PO; FINASTERIDE5 MG PO; KEFLEX500 M1 PO; LIPITOR40 MG PO; LISINOPRIL10 MG PO; METOPROLOL SUCC50 MG PO; NORCO 10-325 T1 EACH PO; PROTONIX40 M1 PO; TAMSULOSIN HCL0.4 MG PO
== END | disposition home or self-care (01) ==
LOC: SJCVC 11:17
DX: I25.10 Atherosclerotic heart disease of native coronary artery without angina pectoris (principal); R94.31 Abnormal electrocardiogram [ECG] [EKG]; I10 Essential (primary) hypertension; I25.2 Old myocardial infarction; E78.00 Pure hypercholesterolemia, unspecified; N41.9 Inflammatory disease of prostate, unspecified; Z72.0 Tobacco use